=== PATIENT | male | born 1965 | race Caucasian/White ===

== ENCOUNTER 2024-01-25 09:59 | Emergency (ER) | payer SELFPAY ==
[2024-01-25] VITALS (30 sets, daily range): BP systolic 138–170; BP diastolic 89–107; PULSE 85–94; RESP 18; TEMP 36.9; O2SAT 95–100; BMI 25.8
--- NOTE | 2024-01-25 11:02 | CT_ITS ---
WS: [id number] CT ABDOMEN AND PELVIS WITH CONTRAST HISTORY: migrating right abd pain TECHNIQUE: Imaging performed of the abdomen and pelvis with IV contrast. Single phase imaging of the abdomen. Coronal and sagittal reformats are submitted. All CT scans at [facility] use at hal [facility] one of these dose optimization techniques: automated exposure control; mA and/or kV adjustment per patient size (includes targeted exams where dose is matched to clinical indication); or iterative re construction. IV CONTRAST: Omnipaque 350; 100 mL IV. Oral contrast: No DLP: 642.23 mGy.cm COMPARISON: None available. Lower thorax: Tiny micronodule at the RIGHT lung base. No pneumonia. Heart is normal size. Small hiat al hernia. Liver/biliary system: Normal size liver. There is several low-attenuation nodules throughout the live r. Majority of these are too small to characterize and probably represent small cysts. No dominant so lid mass. No bile duct dilatation. Normal portal vein. Gallbladder: Normal. No gallstones or wall thickening. No pericholecystic fluid. Pancreas: Normal size pancreas and pancreatic duct. No adjacent inflammation. Spleen: Normal size spleen. No mass or infarct. Adrenal glands: Normal. Right kidney: Normal size kidney. There are very tiny scattered cortical hypodensities throughout the kidney. There is a larger area of decreased attenuation and nonenhancement in the upper pole measuri ng 1.4 cm. No renal obstruction. No significant perinephric stranding. Left kidney: No significant perinephric stranding. There is a hypoechoic area in the upper pole measu ring 1.8 cm. Additional scattered hypodensities throughout the kidney. There is no obstruction. Aorta: Normal. Normal celiac axis and SMA. Lymphadenopathy: Central hyperemic mesenteric lymph nodes are probably reactive. Free fluid: Small amount of free fluid in this central pelvis. GI tract: Normal stomach. Normal proximal small bowel. Within the mid to distal small bowel there is a markedly abnormal appearance. The distal small bowel loop are small caliber with mucosal enhancemen t and submucosal edema. There is additional increased attenuation within the submucosal edema suggest ing there may be some underlying hemorrhage or reperfusion edema. There is a transition point in the distal small bowel with adjacent mesenteric stranding and a moderate amount of free air in the mesent bette. No focal abscess. More proximal small bowel loops are dilated to 3.8 cm. The appendix is normal. Distal colon is normal. Abdominal wall: Unremarkable abdominal wall. No hernia. Pelvis: Tiny amount of free fluid in the pelvis. Negative urinary bladder. Inguinal canals are patent bilaterally. Bones: Unremarkable. CT/CT abdomen pelvis w con* [id number] IMPRESSION: 1. Abnormal long segment mid to distal small bowel loops. There is an associat ed perforation with ischemic changes. More proximal small bowel loops are dilat ed. Associated hemorrhage may also be present at the site of the free air and p erforation. There is no foreign body identified. There is a long segment involv ement consider acute or back sedation of Crohn's disease. Surgical consultation necessary. 2. Central mesenteric hyperemic lymph nodes are probably reactive. Lymph nodes measure up to 16 mm. 3. Small amount of free fluid. 4. No abscess. 5. Abnormal renal parenchyma. There are scattered areas of decreased attenuati on in decreased enhancement. This can be seen with infection/pyelonephritis but there is no perinephric stranding. Consider evaluation for urinary tract infec tion. Anticipate further evaluation of the kidneys after patient's acute episod e resolves. Notified Fransisco Arce DO at 01/25/2024 12:19 PM.
--- NOTE | 2024-01-25 11:05 | ED_ITS ---
HPI - Abdominal Pain 2 General: Chief Complaint: Nausea/Vomiting/Diarrhea Stated Complaint: lorenza allison sent, lower right side abd pain Time Seen by Provider: 01/25/24 10:50 Source: patient Mode of arrival: ambulatory Limitations: no limitations History of Present Illness: This patient made his way to the emergency department for several days of abdominal complaints. He states that late last week Wednesday timeframe he did develop some upper abdominal pain some back pain associated with that which he thought might been related to some food he ate. He states he had some loose stools and then felt a little bit better but subsequently over the Wednesday and Wednesday his symptoms seemingly still were present and over the last 24 hours have been more in the right side of his abdomen rather than in the mid abdomen as previously noted. He states he is also had associated vomiting and nausea. He has had some chills but no documented fevers. He states he took a couple of antibiotics over the past 24 hours thinking it might help him. He does not have a history of prior abdominal surgeries. He has no history of recent antibiotic use other than noted in the last day, recent travel, known exposure to infectious disease and known exposure to bad food that he is aware. He has no history of cardiovascular disease. He occasionally drinks alcohol does not use tobacco. MD elicited complaint: abdominal pain Severity: moderate Quality: aching and fullness Migration to: RLQ Exacerbating factors: movement Relieving factors: nothing Associated Symptoms: Reports chills, diarrhea, nausea and vomiting; Denies dysuria, fever(s), hematochezia, hematemesis and melena Review of Systems 2 Const: Reports: chills; Denies: fever(s) or body aches ENMT: Denies: throat pain, odynophagia, nasal discharge or nasal congestion Card: Denies: chest pain or palpitations Resp: Denies: dyspnea, productive cough or non-productive cough GI: Reports: abdominal pain, nausea, vomiting and diarrhea; Denies: hematemesis, hematochezia or melena : Denies: flank pain, difficulty urinating, dysuria or urinary frequency Musc: Reports: back pain; Denies: neck pain, extremity pain or extremity swelling Skin/Breast: Denies: rash or pruritus Neuro: Denies: headache(s), numbness in extremities or weakness in extremities Psych: Denies: anxiety, depression or mood swings Physical Exam 2 Narrative: EXAM NARRATIVE: Average body habitus. He is cooperative and appears to be generally comfortable unless he moves that he becomes more uncomfortable. Const: COMMON NORMALS: average body habitus, patient oriented x3 and healthy appearing GENERAL APPEARANCE: cooperative HENMT: COMMON NORMALS: normocephalic, Normal nasal mucous membranes and turbinates present and moist oral mucous membranes HEAD & SCALP: n ormocephalic NOSE: Normal nasal mucous membranes and turbinates present Eye: COMMON NORMALS: Equal, round and reactive pupils present, EOMs intact bilaterally and conjunctivae normal CONJUNCTIVA: Yes conjunctivae normal P UPIL: Yes Equal, round and reactive pupils present Neck/C-Spine: COMMON NORMALS: full ROM, no lymphadenopathy and no JVD Chest: COMMONS NORMALS: normal inspection of the chest Resp: COMMON NORMALS: normal respiratory effort, No retractions, No use of accessory muscles and clear to auscultation bilaterally AUSCULTATION: clear to auscultation bilaterally Cardio: COMMON NORMALS: no JVD, regular rate, regular rhythm, No murmurs present (Cardio) and Peripheral pulses 2+ throughout RATE: regular rate R HYTHM: regular rhythm PERIPHERAL PULSES: Peripheral pulses 2+ throughout GI: PALPATION: Yes Tenderness to palpation present (GI) Details: RLQ and Yes Guarding due to palpation present (GI) in the RLQ OTHER: Abdomen examination reveals tenderness some in the epigastrium but more pronounced in the right lower quadrant with some voluntary guarding. He also has some discomfort with peritoneal irritation. No obvious hernias noted. No masses. : COMMON NORMALS: Yes no CVA tenderness BLADDER/KIDNEY EXAM: Yes no CVA tenderness Back/Pelvis: COMMON NORMALS: no CVA tenderness, thoracic and lumbar spine normal to inspection, no thoracic nor lumbar tenderness, thoraco-lumbar ROM normal and straight leg raise negative bilaterally Extremity: COMMON NORMALS: normal to inspection, full ROM, capillary refill normal, no calf tenderness and no pedal edema Neuro: COMMON NORMALS: patient oriented x3, moves all extremities and no focal motor deficits CRANIAL NERVES: Yes CN normal except as noted Psych: COMMON NORMALS: mental status grossly normal Skin: COMMON NORMALS: no rashes or lesions noted and no wounds GENERAL SKIN EXAM: no rashes or lesions noted Course 2 Reevaluation(s): Reevaluation #1: Discussed current findings with the patient as well as his sister who is with him in the emergency department. I related to him that he has evidence that suggest she has Crohn's disease with perforation of his bowel which is localized and that he will need treatment with antibiotics, likely steroids, and continued observation and reevaluation to ensure that he does not develop peritonitis or other worrisome conditions or does not require additional surgery such as a bowel resection etc. He now relates to me that for a long time he suspected he has Crohn's disease but he had no specific history that suggested that when he and I discussed his past. His sister does relate that her son has Crohn's disease but there is no other family members that they know of his had history of Crohn's disease. He asked what the treatment would entail and I told him that I could not give him details but at the minimum he needed hospitalization for antibiotics etc. He then told me that his preference would be to go home. I initially thought he was saying this and just but after repetitively questioning him he stated that he would like to go home at that that would be his preference. I related to him that going home with his current findings on his CT scan which included Jonathan microperforation etc. could potentially result in a loss of current lifestyle and . He acknowledged this and told me that everyone dies anyway. I tried to reiterate the serious nature of his current condition and potential outcomes. He finally told me that he would discuss it with his and then I could revisit admission with him in just a few minutes. Time: 13:09 Reevaluation #2: Patient has now agreed to be placed in the hospital. Unclear how long he will stay in a hospital bed least regarding in and hopefully will be able to continue to convince him to stay. Time: 13:21 Consultations: Consultation #1: Discussed with Dr. Toscano general surgeon who reviewed the CT scan. He believes that this likely represents a presentation of Crohn's disease. He recommends admitting to medicine service and he will consult on the patient. Time: 12:33 Consultation #2: Spoke with Dr. Norwood who agreed to accept the patient Time: 13:21 Vital Signs: Vital signs: Vital Signs Temperature 98.4 F 01/25/24 10:23 Pulse Rate 85 01/25/24 10:57 Respiratory Rate 18 01/25/24 11:16 Blood Pressure 152/95 06/04/24 12:35 Pulse Oximetry 98 01/25/24 12:35 Oxygen Delivery Me thod Room Air 01/25/24 10:57 MDM - Abdominal Pain Medical Decision Making Patient presents with several days of abdominal pain which initially started as epigastric and upper abdominal which seems to have migrated to the right and the lower abdomen. Associated decreased oral intake without any fevers but did have chills. No prior abdominal surgeries and no prior history of known gastrointestinal disease. Known other potential risk factors such as recent antibiotic use, travel, bad food exposure etc. Workup abdominal pain ensued with a broad differential to include appendicitis bowel obstruction renal colic etc. Imaging was ordered as well as blood work. The patient was given analgesics and antinausea medicine for symptomatic relief while workup ensued. Workup revealed a CT scan which had evidence of marked inflammation of the terminal ileum with some microperforations as well. Both general surgery as well as hospitalist team were consulted. The patient initially was intent on leaving the facility but eventually acquiesced and decided to stay. Lab Data I reviewed the patient's lab results. 01/25/24 10:44 01/25/24 10:44 Labs/Radiology: Radiology Impressions Abdomen/Pelvis CT 01/25/24 11:02 IMPRESSION: 1. Abnormal long segment mid to distal small bowel loops. There is an associated perforation with ischemic changes. More proximal small bowel loops are dilated. Associated hemorrhage may also be present at the site of the free air and perforation. There is no foreign body identified. There is a long segment involvement consider acute or back sedation of Crohn's disease. Surgical consultation necessary. 2. Central mesenteric hyperemic lymph nodes are probably reactive. Lymph nodes measure up to 16 mm. 3. Small amount of free fluid. 4. No abscess. 5. Abnormal renal parenchyma. There are scattered areas of decreased attenuation in decreased enhancement. This can be seen with infection/pyelonephritis but there is no perinephric stranding. Consider evaluation for urinary tract infection. Anticipate further evaluation of the kidneys after patient's acute episode resolves. Notified Fransisco Arce DO at 01/25/2024 12:19 PM. Laboratory Results WBC 9.48 10^3/uL (3.29-11.43) 01/25/24 10:44 RBC 5.29 10^6/uL (3.85-5.65) 01/25/24 10:44 Hgb 16.40 g/dL (11.27-16.99) 01/25/24 10:44 Hct 46.3 % (37-53) 01/25/24 10:44 MCV 87.5 fl (82-101) 01/25/24 10:44 MCH 31.0 pg (27-33) 01/25/24 10:44 MCHC 35.4 g/dL (30-55) 01/25/24 10:44 RDW 13.4 % (12.1-15.1) 01/25/24 10:44 Plt Count 305 10^3/cmm (157-399) 01/25/24 10:44 MPV 10.9 fL (7.4-10.4) H 01/25/24 10:44 Lymph % (Auto) Not Reportable 01/25/24 10:44 Weston % (Auto) Not Reportable 01/25/24 10:44 Lymph # (Auto) Not Reportable 01/25/24 10:44 Weston # (Auto) Not Reportable 01/25/24 10:44 Total Counted 100 (0-100) 01/25/24 10:44 Atypical Lymphs % 0.0 % (0-5) 01/25/24 10:44 Absolute Neutrophils 8.6 10^3/cmm (1.4-6.5) H 01/25/24 10:44 Segmented Neutrophils 79 % 01/25/24 10:44 Abs Segm Neuts (Man) 7.5 10/cmm (1.6-7.1) H 01/25/24 10:44 Band Neutrophils 12.0 % 01/25/24 10:44 Abs Band Neuts (Man) 1.1 10^3/cmm (0.0-1.2) 01/25/24 10:44 Absolute Lymphocytes 0.6 10^3/cmm (1.2-3.4) L 01/25/24 10:44 Lymphocytes (Manual) 6 % 01/25/24 10:44 Monocytes (Manual) 1.0 % 01/25/24 10:44 Absolute Monocytes 0.1 10^3/cmm (0.1-0.6) 01/25/24 10:44 Eosinophils (Manual) 0 % 01/25/24 10:44 Absolute Eosinophils 0.0 10^3/cmm (0.0-0.7) 01/25/24 10:44 Basophils (Manual) 0.0 % 01/25/24 10:44 Absolute Basophils 0.0 10^3/cmm (0.0-0.2) 01/25/24 10:44 Metamyelocytes 1.0 % 01/25/24 10:44 Myelocytes 1.0 % 01/25/24 10:44 Platelet Estimate Normal (Normal) 01/25/24 10:44 Sodium 138 mmol/L (136-145) 01/25/24 10:44 Potassium 3.2 mmol/L (3.5-5.1) L 01/25/24 10:44 Chloride 98 mmol/L (98-107) 01/25/24 10:44 Carbon Dioxide 25 mmol/L (22-29) 01/25/24 10:44 Anion Gap 18.2 (5-19) 01/25/24 10:44 BUN 10 mg/dL (6-20) 01/25/24 10:44 Creatinine 0.8 mg/dL (0.7-1.2) 01/25/24 10:44 GFR Calculation 100.0 mL/min (90-130) 01/25/24 10:44 Glucose 122 mg/dL (65-115) H 01/25/24 10:44 Calculated Osmolality 286 mOsm/kg (285-295) 01/25/24 10:44 Calcium 8.9 mg/dL (8.5-10.5) 01/25/24 10:44 Total Bilirubin 0.9 mg/dL (0.15-1.2) 01/25/24 10:44 AST 10 U/L (0-40) 01/25/24 10:44 ALT 14 U/L (0-41) 01/25/24 10:44 Alkaline Phosphatase 74 U/L (40-130) 01/25/24 10:44 Total Protein 7.5 g/dL (6.6-8.7) 01/25/24 10:44 Albumin 3.9 g/dL (3.5-5.2) 01/25/24 10:44 Globulin 3.6 g/dL (1.3-4.6) 01/25/24 10:44 Lipase 45 U/L (13-60) 01/25/24 10:44 All radiology interpretation(s) finalized by discharge Discharge Plan Discharge Patient Disposition: Admitted As Inpatient Clinical Impression: Crohn's disease involving terminal ileum Condition: Stable Prescriptions: No Action No Known Home Medications Coding Level of Care Code ED Fatback Trimmer for Nel Silverio
[2024-01-25 11:06] LABS: Hematocrit 46.3 % (37-53); Mean Corpuscular HGB Conc 35.4 g/dL (30-55); Mean Corpuscular Volume 87.5 fl (82-101); Mean Platelet Volume 10.9 fL (7.4-10.4); Platelet Count 305 10^3/cmm (157-399); Red Blood Count 5.29 10^6/uL (3.85-5.65); Red Cell Distribution Width 13.4 % (12.1-15.1); White Blood Count 9.48 10^3/uL (3.29-11.43)
[2024-01-25] MEDS: ondansetron 2 mg/ML SDV 2 mL 4 MG IVP (11:16)
[2024-01-25] MEDS: morphine 4 mg/mL SDV 1 mL IVP (11:16)
[2024-01-25] MEDS: lactated ringers 1,000 ML 999 ML IV (11:17)
[2024-01-25 11:26] LABS: Alanine Aminotransferase 14 U/L (0-41); Albumin Level 3.9 g/dL (3.5-5.2); Alkaline Phosphatase 74 U/L (40-130); Anion Gap 18.2 (5-19); Aspartate Amino Transferase 10 U/L (0-40); Blood Urea Nitrogen 10 mg/dL (6-20); Calcium 8.9 mg/dL (8.5-10.5); Carbon Dioxide 25 mmol/L (22-29); Chloride 98 mmol/L (98-107); Creatinine Clr Calc Pharmacy 108.1669; Globulin 3.6 g/dL (1.3-4.6); Glucose 122 mg/dL (65-115); Lipase 45 U/L (13-60); Osmolality Calculated 286 mOsm/kg (285-295); Potassium 3.2 mmol/L (3.5-5.1); Sodium 138 mmol/L (136-145); Total Bilirubin 0.9 mg/dL (0.15-1.2); Total Protein 7.5 g/dL (6.6-8.7)
[2024-01-25 11:44] LABS: Slide Review Slide Review Perform
[2024-01-25 11:45] LABS: Absolute Neutrophil 8.6 10^3/cmm (1.4-6.5); Absolute Segmented Neutrophil 7.5 10/cmm (1.6-7.1); Band Neutrophils Absolute 1.1 10^3/cmm (0.0-1.2); Eosinophils 0 %; Lymphocytes 6 %; Lymphocytes Absolute 0.6 10^3/cmm (1.2-3.4); Monocytes Absolute 0.1 10^3/cmm (0.1-0.6); Platelet Estimate Normal (Normal); Segmented Neutrophils 79 %; Total Cells Counted 100 (0-100)
[2024-01-25] MEDS: iohexol 350 mg/mL 500 mL Btl (per mL) IV (11:52)
--- NOTE | 2024-01-25 13:48 | PC.NURSE ---
PT REQUESTED TO LEAVE AMA. DR. EVANS AWARE AND SPOKE WITH PT REGARDING RISKS OF LEAVING AND REFUSING TX. PT ALERT AND ORIENTED. PT STILL WISHES TO LEAVE AMA
[2024-01-25 14:45] LABS: Add Urine Microscopic? YES; Bacteria Urine TRACE /hpf; Bilirubin Urine Neg (Negative); Blood Urine 2+ (Negative); Glucose Urine UA Norm (Normal); Ketones Urine 1+ (Negative); Leukocyte Esterase Urine Negative (Negative); Mucus Urine 1+ /hpf; Nitrate Urine Negative (Negative); Protein Urine 1+ (Negative); RBC Urine 0-4 /hpf (0-2); Squamous Epithelial Cell Urine 0-4 /hpf (0-5); Urine Appearance Slightly Cloudy (CLEAR); Urine Color Yellow (Yellow); Urobilinogen Urine Norm (Negative); WBC Urine 0-4 /hpf (0-5); pH Urine 5 (5-7)
[2024-01-25 14:46] LABS: Hyaline Casts Urine 0-4 /lpf
== END 2024-01-25 14:21 | disposition left against medical advice (07) ==
PROVIDERS: Physician Assistant; Emergency Provider Emergency Medicine
DX: K50.918 Crohn's disease, unspecified, with other complication (principal)
CPT/HCPCS: 36415; 74177; 80053; 81001; 83690; 85007; 85025; 96374; 96375; 99285; J2270; J2405; J7120; Q9967